=== PATIENT | female | born 1960 | race Caucasian/White ===

== ENCOUNTER → 2022-05-08 16:14 | Outpatient (CLI) | payer OTHER, SELFPAY ==
--- NOTE | ~2022-05-08 | US_ITS ---
EXAMINATION: US thyroid DATE: 05/08/2022 16:32 INDICATION: Localized swelling, mass and lump, neck. TECHNIQUE: Multiple ultrasound images of the thyroid were obtained. COMPARISON: None. FINDINGS: The right thyroid lobe measures 4.8 x 1.9 x 1.2 cm. The left thyroid lobe measures 3.8 x 1.6 x 1.3 c m. There is normal echotexture and echogenicity throughout the thyroid gland. No discrete nodules id entified. Normal vascular flow is present. IMPRESSION: 1. Normal thyroid. Reviewed, dictated and finalized at location A. IMPRESSION: 1. Normal thyroid.
== END ==
PROVIDERS: PCP Family Medicine; Visit Provider Nurse Practitioner Family
DX: R22.1 Localized swelling, mass and lump, neck (principal)
CPT/HCPCS: 76536